=== PATIENT | female | born 1965 | race Caucasian/White ===

== ENCOUNTER 2019-02-18 09:49 | Day surgery (SDC) | payer BC ==
[2019-02-18] VITALS (10 sets, daily range): BP systolic 93–118; BP diastolic 55–70; PULSE 61–92; TEMP 97.8–98.2
[~2019-02-18] VITALS: Ht 160 cm; Wt 70.6 kg
[2019-02-18] MEDS ORDERED: ADVIL200 MG PO (10:19)
[2019-02-18] MEDS ORDERED: VTAMINC250TA PO (10:19)
--- NOTE | 2019-02-18 11:07 | NUR ---
Patient escorted to restroom, voids, returns to room.
--- NOTE | 2019-02-18 16:15 | NUR ---
Patient is back from surgery. Minimal complaints of pain, stated having some cramping to right side. Explained that is to be expected. Denies nausea. Explained she can not have straws or carbonation. Explained what is included in a clear liquid diet. No other changes at this time. Call light within reach.
--- NOTE | 2019-02-18 18:50 | NUR ---
Patient has been doing well since getting back from surgery. She stood up at the side of bed but was a little dizzy so she was not able to walk. She has been drinking water and eating jello. Urine output is picking up, since arriving from PACU. No other changes at this time. Call light within reach.
--- NOTE | 2019-02-18 19:44 | NUR ---
Pt back to bed after ambulating in halls with PCT. Pt reports some dizziness with ambulation. No distress noted at this time. Respirations even and unlabored. Lungs clear to auscultation. [place] soft, nontender. BS hypoactive. Lap sites x5 to abdomen. Edges well approximated. Indwelling catheter to dependent drainage. Output is clear, yellow. Vaginal packing in place. Pt denies pain at this time. No needs noted. Will continue to monitor.
[2019-02-19 05:10] VITALS: BP 91/55; PULSE 79; TEMP 98
--- NOTE | 2019-02-19 06:21 | NUR ---
Pt has been up ambulating in halls x3. Pt has minimal complaints of pain, only requiring scheudled medications. Molina catheter in place. Output is adequate. Pt tolerating CL diet- advanced. No further needs noteed.
[2019-02-19 07:06] LABS: BASO % 0.2 % (0.0-2.0); EOS % 0.2 % (0-4.0); GRAN # 9.1 (1.4-6.5); GRAN % 71.8 % (42.2-75.2); HEMOGLOBIN 12.9 g/dl (12.5-16.0); LYMPH # 2.6 (1.2-3.4); LYMPH % 20.6 % (20.0-51.0); MEAN CELL VOLUME 91 fl (80.0-100.0); MEAN CORPUSCULAR HEMOGLOBIN 30 pg (27.0-31.0); MEAN CORPUSCULAR HGB CONC 33 g/dl (33.0-37.0); MONO # 0.8 (0.1-0.6); MONO % 6.7 % (1.7-9.3); PLATELET COUNT 240 K/mm3 (130-400); RED BLOOD COUNT 4.28 M/mm3 (4.10-5.30); REDCELL DISTRIBUTION WIDTH-CV 13.1 % (11.5-14.5)
[2019-02-19 07:17] LABS: CALCIUM 9.1 mg/dL (8.4-10.2); CREATININE, serum 0.53 (0.52-1.25); POTASSIUM 4.4 mmol/L (3.4-5.0)
--- NOTE | 2019-02-19 08:24 | NUR ---
Vaginal packing removed per drs order.
[2019-02-19 08:47] VITALS: BP 97/58; PULSE 92; TEMP 98.1
--- NOTE | 2019-02-19 09:27 | NUR ---
Molina catheter removed per drs order.
--- NOTE | 2019-02-19 09:36 | NUR ---
Patient alert and oriented, answers questions appropriately. See assessment. Abdomen soft, non tender, non distended. Bowel sounds active x4 quads. +Flatus. Abdomen lap sites with edges well approximated, no redness or drainage noted. No c/o pain or discomfort at this time.
--- NOTE | 2019-02-19 11:20 | NUR ---
Discharge instructions reviewed with patient and family, verbalized understanding. Discharged via wheelchair to auto/home with family at 1120.
--- NOTE | 2019-02-19 12:55 | NUR ---
First visit from the renal medicine specialist. No needs right now.
== END 2019-02-19 11:20 | disposition home or self-care (01) ==
LOC: SDCO 09:49 → JCC 17:08 → SDCO 02-19 11:20
PROVIDERS: Urology
DX: N99.3 Prolapse of vaginal vault after hysterectomy (principal); Z98.51 Tubal ligation status; Z90.49 Acquired absence of other specified parts of digestive tract; F17.210 Nicotine dependence, cigarettes, uncomplicated; Z80.52 Family history of malignant neoplasm of bladder; Z80.3 Family history of malignant neoplasm of breast; Z80.8 Family history of malignant neoplasm of other organs or systems; Z82.49 Family history of ischemic heart disease and other diseases of the circulatory system; Z83.3 Family history of diabetes mellitus; M19.042 Primary osteoarthritis, left hand; M19.041 Primary osteoarthritis, right hand; M54.5 Low back pain; M41.9 Scoliosis, unspecified
CPT/HCPCS: OP; A4314; A9284; C1781; J0330; J1100; J1650; J1885; J2250; J2370; J2405; J2704; J2710; J3010; J7120

== ENCOUNTER 2020-05-18 14:15 | Outpatient (RCR) | payer OTHER ==
[~2020-05-18 14:15] MED LIST: ADVIL200 MG PO; VTAMINC250TA PO
== END 2020-06-28 | disposition home or self-care (01) ==
LOC: WSOH
DX: S90.32XA Contusion of left foot, initial encounter (principal); Z98.890 Other specified postprocedural states; Y99.0 Civilian activity done for income or pay